=== PATIENT | female | born 1955 | race Caucasian/White ===

== ENCOUNTER 2019-04-10 11:25 | Day surgery (SDC) | payer MEDICAID ==
[2019-04-07 09:21] LABS: HEMATOCRIT 41.9 % (36.0-48.0); HEMOGLOBIN 14.1 g/dL (12-16); MCH 30.4 pg (26.0-34.0); MCHC 33.7 g/dL (31.0-37.0); MCV 90.3 fL (80.0-100.0); MEAN PLATELET VOLUME 9.8 fL (7.4-10.4); RBC 4.64 10x6/uL (4.00-5.40); RDW 14.3 % (11.5-14.5); WBC 6.8 10x3/uL (4.8-10.8)
[~2019-04-10] VITALS: Ht 160 cm; Wt 132.4 kg
[~2019-04-10 11:25] MED LIST: CYCLOBENZAPRINE10 MG PO
[2019-04-10 14:08] VITALS: BP 135/74; Ht 160 cm; Wt 132.4 kg
[2019-04-10] MEDS ORDERED: DEMEROL100 MG PO (15:21)
--- NOTE | 2019-04-10 19:05 | NUR ---
1600 IV REMOVED AND INSTRUCTIONS GIVEN
--- NOTE | 2019-04-13 11:34 | OP ---
PATIENT NAME: TAD FAJARDO MEDICAL RECORD: [id number] :59 LOCATION:D.OPS ADMISSION DATE: SURGEON: FRANCISCO RYAN MD DATE OF OPERATION: 04/10/2019 PREOPERATIVE DIAGNOSIS: Left ring finger trigger finger. POSTOPERATIVE DIAGNOSIS: Left ring finger trigger finger. PROCEDURE: Left ring finger trigger finger release. SURGEON: Francisco Ryan MD GEOTHERMAL [employer]ET METAL WORKER: YUNIER Mathis ANESTHESIA: TIVA with local. INTRAOPERATIVE COMPLICATIONS: None. SUMMARY OF PATHOLOGIC FINDINGS: After releasing the A1 oswaldo, the patient had significant excoriated changes of the tendon; however, no full-thickness tearing was noted. OPERATIVE SUMMARY IN DETAIL: After obtaining the appropriate preoperative orthopedic surgery consent as well as anesthetic consultation, evaluation and clearance and doing the appropriate time-out, the patient was brought to the operating room and placed on the operating table in supine position. After adequate general TIVA anesthesia was administered, the patient's left upper extremity was prepped and draped in routine sterile fashion. No tourniquet was utilized. The area was locally infiltrated with 0.25% Marcaine with epinephrine. Incision was made and taken down to the A1 oswaldo, which was identified and incised in its entirety. Tendons were then brought up into the incision and evaluated. Findings as noted above. Wound was irrigated and closed with 4-0 Prolene by YUNIER Mathis. Sterile dressings were applied. The patient was awakened and taken back to outpatient in stable condition. All final needle and sponge counts were correct. TRANSINT:[id number] Voice Confirmation ID: [id number] DOCUMENT ID: [id number] FRANCISCO RYAN MD at 1134 CC: [id number] DICTATION DATE: 04/12/19 1046 REGISTERED NURSE: 04/12/19 1301 [facility] 04/10/19 [place] [id number]
== END 2019-04-10 16:20 | disposition home or self-care (01) ==
LOC: D.OPS 11:25 → D.PAN 11:50 → D.OPS 13:30 → D.PAN 13:30 → D.OPS 16:20
PROVIDERS: Anesthesiology; ATTEND Orthopaedic Surgery
DX: M65.342 Trigger finger, left ring finger (principal)